=== PATIENT | female | born 1985 | race Caucasian/White ===

== ENCOUNTER 2018-08-08 06:11 | Inpatient (IN) ==
[2018-08-08] MEDS ORDERED: *HR* Nalbuphine 10 MG/ML AMPUL IVP PRN (06:13)
[2018-08-08] MEDS ORDERED: Metoclopramide 10 MG/2 ML VIAL IVP PRN (06:13)
[2018-08-08] MEDS ORDERED: Famotidine 20 MG/2 ML VIAL IVP PRN (06:13)
[2018-08-08] MEDS ORDERED: miSOPROStol 25 MCG TABLET VG PRN (06:13)
[2018-08-08] MEDS ORDERED: Lidocaine 1% 20 ML MDV INFILT PRN (06:13)
[2018-08-08] MEDS ORDERED: Ondansetron 4 MG/2 ML VIAL IVP PRN (06:13)
[2018-08-08] MEDS ORDERED: Naloxone 0.4 MG/ML INJ IVP PRN (06:13)
[2018-08-08] MEDS ORDERED: Ringers Solution, Lactated 1,000 ML IVC SCH (06:15)
[2018-08-08 06:41] LABS: Basophils % 0.3 %; Eosinophils # 0.3 K/mcL (0.0-0.6); Eosinophils % 2.1 %; Hematocrit 35.6 % (35.3-44.9); Hemoglobin 12.2 g/dL (11.5-15.4); Immature Granulocytes % 0.5 % (0-4); Lymphocytes # 3.5 K/mcL (0.6-4.6); Lymphocytes % 29.4 %; Mean Corpuscular HGB Conc 34.3 g/dL (31.6-35.5); Mean Corpuscular Hemoglobin 30.7 pg (28.0-33.3); Mean Corpuscular Volume 89.4 fL (83.0-100.0); Mean Platelet Volume 11.6 fL (9.4-12.4); Monocytes # 0.7 K/mcL (0.0-1.3); Monocytes % 5.6 %; Neutrophils # 7.4 K/mcL (1.6-8.9); Platelet Count 283 K/mcL (140-400); Red Blood Count 3.98 M/mcL (3.82-4.97); Red Cell Distribution Width 14.2 % (11.5-14.5); Segmented Neutrophils % 62.1 %; White Blood Count 11.9 K/mcL (4.3-11.1)
[2018-08-08 06:49] LABS: Amphetamine Screen,Urine Negative ng/mL (Cutoff=1000); Barbiturate Screen,Urine Negative ng/mL (Cutoff=200)
[2018-08-08 06:50] LABS: Benzodiazepines Screen,Urine Negative ng/mL (Cutoff=300); Cannabinoid Screen,Urine Negative ng/mL (Cutoff = 50); Cocaine Screen,Urine Negative ng/mL (Cutoff= 300); Opiate Screen,Urine Negative ng/mL (Cutoff=300); Phencyclidine Screen,Urine Negative ng/mL (Cutoff=25)
--- NOTE | 2018-08-08 07:41 | Anesthesia Evaluation PreOp ---
Date of Encounter: 08/08/18 Time of Encounter: 07:32 - Past History Planned Operation: term induction Cardiac History: Denies any Significant Hx Pulmonary History: Denies Any Significant HX BISCUIT PACKER History: Denies Any Significant HX Other Medical History: Denies Any Significant HX Anesthesia History: No Prior Anesthetic Complications, Past Anesthesia (3 previous epidurals without comp., no other reported anesthesia comp) Alcohol Use: none Drug use: none Medications and Allergies Vit/Iron Fumarate/FA [ Tablet] 1 tab PO DAILY 05/31/15 [History] Allergy/AdvReac Type Severity Reaction Status Date / Time No Known Allergies Allergy Verified 08/08/18 06:25 Anesthesia Results - Labs 08/08/18 06:23 Anesthesia Exam - HEENT Pupil (Motor): Pupils equal Mallampati: II Teeth: Normal Oral Opening: Greater than 3 - BISCUIT PACKER LOC: Oriented BISCUIT PACKER Motor: Normal RUE, Normal LUE, Normal RLE, Normal LLE, Normal Face BISCUIT PACKER Sensory: Normal: RUE, LUE, RLE, LLE, Face - Cardiac Rhythm: Regular Murmur: None - Pulmonary Breath Sounds: bilateral Clear Respiratory Effort: Symmetrical Anesthesia Assess/Plan ASA Score: 2 Level of consciousness: Cooperative, Oriented Anesthetic Plan: General, Spinal, Epidural Monitoring Plan: Standard Monitors Recovery Plan: PACU
[2018-08-08] MEDS ORDERED: Epidural Premix (fent/bupiv) 110 ML EP SCH (07:45)
--- NOTE | 2018-08-08 07:53 | OB/GYN History & Physical ---
Date of Encounter: 08/08/18 Time of Encounter: 07:50 Assessment and Plan (1) 39 weeks gestation of Current visit: No Status: Acute 33yo female at 39 weeks gestation presents for induction of labor. Meza cath placed into cervix and filled with 40 cc sterile water. Cytotec given, expect . History of Present Illness Chief complaint: Here for induction HPI: Ms. Reina is a 33 year old female at 39 weeks gestation presents for induction. has been uncomplicated. She reports + GFM, no vb or lof. On arrival she reports irregular uc's. Past Med Surg Social Fam HX - Past Medical History Source: patient, old records reviewed Medical history: no medical history Psychiatric history: no psych history - Past Surgical History Surgical History: other Additional surgical history: T&A age 8 - Social History Smoking Status: Never smoker Smokeless Tobacco Status: No Alcohol use: none Drug use: none - Family History Mother Living Status: Still Living Hx Family Cardiac Disorders: No Hx Family Respiratory Disorders: No Hx Family Cancer: Yes (breast ca) Hx Family GI Disorders: No Hx Family Endocrine Disorder: No Hx Family Neuromuscular Disorders: No Hx Family Neurologic Disorders: No Hx Family HEENT Disorders: No Hx Family Autoimmune Disorders: No Obstetrical History - Pregnancies : 6 Para: 3 Medications and Allergies Vit/Iron Fumarate/FA [ Tablet] 1 tab PO DAILY 05/31/15 [History] Allergy/AdvReac Type Severity Reaction Status Date / Time No Known Allergies Allergy Verified 08/08/18 06:25 Exam - Constitutional Constitutional: well developed - HEENT HEENT: EOMI, PERRL - Neck Neck exam: full ROM - Lungs Respiratory exam: CTAB - Cardiovascular Cardiovascular exam: RRR - Abdomen Abdomen: Present: gravid, non tender - Extremities Extremities exam: full ROM Deep Tendon Reflex Grade: 2+ Normal - Cervix Dilation: 2 Effacement: 70 Station: -2 Results Result Diagrams: 08/08/18 06:23 Abnormal lab results WBC 11.9 K/mcL (4.3-11.1) H 08/08/18 06:23 All other labs normal. - VTE Reasons for not Prescribing Prophylaxis: Treatment not Indicated - Low risk for VTE
[2018-08-08] MEDS ORDERED: Oxytocin 20 units/ LR 1000 mL 20 UNIT/1,000 ML BAG IVC SCH ×2 (11:15→23:04)
--- NOTE | 2018-08-08 13:16 | Anesthesia Procedures ---
Date of Encounter: 08/08/18 Time of Encounter: 12:48 Procedures: Anesthesia - Epidural/Spinal Patient ID/Chart reviewed: Yes Patient examined: Yes OB Eval: Gestational age: term OB Eval: : 6 OB Eval: Hx Para: 3 OB Eval: Contractions: Non-stressed pattern Consent Obtained: Yes Supplemental Oxygen: None/Room Air Site Prep: Aseptic Technique, Sterile prep and drape, 0.5% Chlorhexidine/Alcohol Patient position: upright Local Anesthetic: Lidocaine 1% Amount of Local Anesthetic used: 2 Touhy Needle Gauge: 18 Touhy Needle Depth (cm): 6 Catheter Depth at Skin (cm): 11 Test Dose (1.5% Lido + Epi): Volume given (mls): 4 Test Dose Result: Negative Loading Dose: Other: 10ML FROM SOLUTION Loading Dose Administered: Thru Catheter Infusion Med: 0.125% Bupivacaine w/ 2 mcg/ml Fentanyl Infusion Rate (mls/hr): [address]: Tegaderm, Tape Interspace Used: L3-L4 Loss of Resistance (GAVIN): Yes (saline) Blood: No CSF: Yes (with 27g purposeful no INJ) Paresthesia: No Procedure: vss though out procedure, FHR stable per RN's
[2018-08-08] MEDS ORDERED: Lidocaine/EPI 1:200k 2% PF 20 ML VIAL ONE (15:54)
--- NOTE | 2018-08-08 16:02 | Event Note ---
<Bina Quinn E - Last Filed: 08/08/18 15:58> Date of Encounter: 08/08/18 Time of Encounter: 15:58 Called to patient's room by RN to evaluate for possible hand in front of head. Upon vaginal exam, hand present anteriorly; attempted to reduce without success. Patient placed in trendelenburg, pitocin stopped, and abdomen prepped for possible C/S. Dr Laura notified and OR prepared for possible C/S. Counter pressure placed on head until Dr Laura arrived to room. Dr Laura arrives to room and resumes care. <Sam Laura R - Last Filed: 08/08/18 16:06> Date of Encounter: 08/08/18 Upon arriving exam performed and hand presentation found. Pt's cevix was 4/80/- 2.. Pt had excellent epidrual and I was able to easily reduce hand back up into the uterus. I had pt "push" and hand remained in appropriate location. Exam a few minutes later was stable. D/w pt options and will cont with labor induction. RNST.
--- NOTE | 2018-08-08 22:10 | OB/GYN Procedure Note ---
Delivery - Delivery Date: 08/08/18 Provider: Sam Laura Delivery induction: obrien, misoprostol Delivery monitor: external FHT, internal uterine Anesthesia: epidural Quantitated Blood Loss: 50 - Infant (s) Infant A Delivery Date: 08/08/18 Infant Delivery Time: 21:47 Presentation: vertex Position: AYDE Route of delivery: Gender: Female Viability: Viable Pounds: 6 Ounces: 12 at 1 minute: 8 at 5 mins: 10 Shoulder Dystocia: not encountered Specimens collected: cord blood Placenta: spontaneous Cord: nuchal cord, 3 umbilical vessels, nuchal reduced - Repair Episiotomy: none Laceration Description: None - Complications Delivery complications: none - Disposition Mom disposition: stable in LDR disposition: stable in LDR - Comments Comments: Pt is s/p of liveborn female 6lb 12 oz with apgars 8 at 1 min and 10 at 5 min. There was a loose nuchal cord that was easily reduced prior to delivery of . We had spontaneous delivery of normal placenta with 3 vc.ebl 50 cc
[2018-08-08] MEDS ORDERED: Oxytocin 20 units/ LR 1000 mL 20 UNIT/1,000 ML BAG IVC ONE (23:04)
[2018-08-08] MEDS ORDERED: Rho Immune Globulin 1,500 UNIT SYRINGE IM PRN (23:04)
[2018-08-08] MEDS ORDERED: Acetaminophen 325 MG TABLET PO PRN (23:04)
[2018-08-08] MEDS ORDERED: Measles/Mumps/Rubella Vacc 0.5 ML VIAL SQ PRN (23:04)
[2018-08-09] MEDS: Ibuprofen 600 MG TABLET PO PRN ×4 (00:33→21:35)
[2018-08-09 04:28] LABS: Basophils % 0.2 %; Eosinophils # 0.1 K/mcL (0.0-0.6); Eosinophils % 0.7 %; Hematocrit 35.9 % (35.3-44.9); Hemoglobin 12.2 g/dL (11.5-15.4); Immature Granulocytes % 0.4 % (0-4); Lymphocytes # 2.7 K/mcL (0.6-4.6); Lymphocytes % 13.9 %; Mean Corpuscular Hemoglobin 31.4 pg (28.0-33.3); Mean Corpuscular Volume 92.3 fL (83.0-100.0); Mean Platelet Volume 11.6 fL (9.4-12.4); Monocytes % 5.2 %; Platelet Count 251 K/mcL (140-400); Red Blood Count 3.89 M/mcL (3.82-4.97); Red Cell Distribution Width 14.5 % (11.5-14.5); Segmented Neutrophils % 79.6 %
[2018-08-09 04:29] LABS: Neutrophils # 15.4 K/mcL (1.6-8.9); White Blood Count 19.4 K/mcL (4.3-11.1)
[2018-08-09] MEDS ORDERED: Prenatal Vit/FA 1 EACH TABLET PO SCH (09:00)
--- NOTE | 2018-08-09 12:55 | OB/GYN Progress Note ---
Date of Encounter: 08/09/18 Time of Encounter: 12:53 - Assessment and Plan (1) (normal spontaneous vaginal delivery) Current Visit: Yes Status: Acute Stable PPD #1 Continue current management Anticipate discharge tomorrow Subjective - Subjective Patient reports: appetite normal, voiding normally, pain well controlled, ambulating normally : doing well Objective - Latest Vital Signs Latest vital signs: Vital Signs Temp Pulse Resp BP Pulse Ox 08/09/18 12:20 97.5 F L 08/09/18 08:33 97.9 F 93 16 136/90 96 08/09/18 02:15 99.0 F 100 14 113/79 99 08/09/18 01:15 98.1 F 104 14 132/82 98 08/09/18 00:15 98.7 F 91 16 139/85 95 Intake and Output 08/08/18 08/09/18 08/09/18 23:59 07:59 15:59 Intake Total 1000 / 1000 Output Total 2100 / 3000 900 / 3000 Balance -2100 / -2000 100 / -2000 Intake: Oral 1000 / 1000 Output: Urine 2100 / 3000 900 / 3000 Other: Meal Breakfast Percent of Meal Consumed 100% Weight 101 kg Patient Weight 08/09/18 23:59 Weight 101 kg - Exam Lungs: bilateral: normal Chest: Normal S1, Normal S2 Abdomen: Present: soft Uterus: Present: firm Uterus Position: 1 Finger Below Umbilicus - Labs Labs: Laboratory Results - last 24 hr 08/09/18 03:49 WBC 19.4 H D RBC 3.89 Hgb 12.2 Hct 35.9 MCV 92.3 MCH 31.4 MCHC 34.0 RDW 14.5 Plt Count 251 MPV 11.6 Immature Gran % 0.4 Seg Neutrophils % 79.6 Lymphocytes % 13.9 Monocytes % 5.2 Eosinophils % 0.7 Basophils % 0.2 Neutrophils # 15.4 H Lymphocytes # 2.7 Monocytes # 1.0 Eosinophils # 0.1 Basophils # 0.0
[2018-08-09 20:51] VITALS: BP 128/84
--- NOTE | 2018-08-09 21:10 | Discharge Summary ---
Date of Encounter: 08/09/18 Time of Encounter: 21:07 - Discharge Diagnosis (1) (normal spontaneous vaginal delivery) Priority: Primary Status: Acute Comments: Stable, meeting all PP milestones, pain well managed, bleeding minimal, breast feeding, desires discharge. - Discharge Medications Prescriptions: New Acetaminophen [Tylenol] 650 mg PO Q6HR PRN tablet PRN Reason: Mild Pain Ibuprofen [Motrin] 600 mg PO Q6HR PRN tablet PRN Reason: Cramping Docusate [Colace] 100 mg PO BID capsule Continued Vit/Iron Fumarate/FA [ Tablet] 1 tab PO DAILY Home Medications: Vit/Iron Fumarate/FA [ Tablet] 1 tab PO DAILY 05/31/15 [History] Acetaminophen [Tylenol] 650 mg PO Q6HR PRN tablet 08/09/18 [Rx] Docusate [Colace] 100 mg PO BID capsule 08/09/18 [Rx] Ibuprofen [Motrin] 600 mg PO Q6HR PRN tablet 08/09/18 [Rx] Allergies/Adverse Reactions: Allergy/AdvReac Type Severity Reaction Status Date / Time No Known Allergies Allergy Verified 08/08/18 06:25 Data Procedures and tests throughout hospitalization: Laboratory Tests 08/08/18 08/08/18 08/09/18 06:23 06:23 03:49 WBC 11.9 H 19.4 H D RBC 3.98 3.89 Hgb 12.2 12.2 Hct 35.6 35.9 MCV 89.4 92.3 MCH 30.7 31.4 MCHC 34.3 34.0 RDW 14.2 14.5 Plt Count 283 251 MPV 11.6 11.6 Immature Gran % 0.5 0.4 Seg Neutrophils % 62.1 79.6 Lymphocytes % 29.4 13.9 Monocytes % 5.6 5.2 Eosinophils % 2.1 0.7 Basophils % 0.3 0.2 Neutrophils # 7.4 15.4 H Lymphocytes # 3.5 2.7 Monocytes # 0.7 1.0 Eosinophils # 0.3 0.1 Basophils # 0.0 0.0 Urine Opiates Screen Negative Ur Barbiturates Screen Negative Ur Phencyclidine Scrn Negative Ur Amphetamines Screen Negative U Benzodiazepines Scrn Negative Urine Cocaine Screen Negative U Marijuana (THC) Screen Negative Ur Drug Screen Interp See Below Labs on day of discharge: Labs from last 24 hours 08/09/18 03:49 WBC 19.4 H D RBC 3.89 Hgb 12.2 Hct 35.9 MCV 92.3 MCH 31.4 MCHC 34.0 RDW 14.5 Plt Count 251 MPV 11.6 Immature Gran % 0.4 Seg Neutrophils % 79.6 Lymphocytes % 13.9 Monocytes % 5.2 Eosinophils % 0.7 Basophils % 0.2 Neutrophils # 15.4 H Lymphocytes # 2.7 Monocytes # 1.0 Eosinophils # 0.1 Basophils # 0.0 Date of admission: 08/08/18 06:11 Primary care physician: PCP NONE Consults: 08/08/18 23:04 Consult to Cover Cutter [CONS] Routine Comment: Vaginal delivery, consult needed Discharging clinician: Marcia Oh Anticipated date of discharge: 08/09/18 - Patient Status Disposition: Home, Self-Care Condition: Good Functional capacity at discharge: independent ambulation Overall status at discharge: patient is back to baseline - Discharge Instructions Follow Up With: NONE,PCP [Primary Care Provider] - Sam Laura MD [Partnered Physician] - - Diet and Activity Activity: resume usual activities as tolerated Diet: regular diet Hospital Course Reason for admission: induction of labor, IUP at term Delivery: Episiotomy: none Laceration: none Other procedures: none complications: none Discharge diagnosis: IUP at term delivered baby: female Hospital course: Delivery - Delivery Date: 08/08/18 Provider: Sam Laura Delivery induction: obrien, misoprostol Delivery monitor: external FHT, internal uterine Anesthesia: epidural Quantitated Blood Loss: 50 - (s) Infant A Delivery Date: 08/08/18 Delivery Time: 21:47 Presentation: vertex Position: AYDE Route of delivery: Gender: Female Viability: Viable Pounds: 6 Ounces: 12 at 1 minute: 8 at 5 mins: 10 Shoulder Dystocia: not encountered Specimens collected: cord blood Placenta: spontaneous Cord: nuchal cord, 3 umbilical vessels, nuchal reduced - Repair Episiotomy: none Laceration Description: None - Complications Delivery complications: none - Disposition Mom disposition: stable in PP and appropriate for discharge Time Attestation: Total time spent providing and/or coordinating discharge services: Time Spent: Less than 30 minutes Exam - Constitutional Vitals: Temp Pulse Resp BP Pulse Ox 98.0 F 96 14 128/84 99 08/09/18 20:35 08/09/18 20:35 08/09/18 20:35 08/09/18 20:35 08/09/18 20:35 General appearance IM: A&O X 3 - Respiratory Respiratory exam: Present: CTAB - Cardiovascular Cardiovascular exam IM: Present: RRR - GI/Abdominal GI/Abdominal exam IM: soft - Uterine Tone: Firm Uterus Position: At Umbilicus - Extremities Exam Extremities exam IM: Present: normal capillary refill, normal inspection - Neurological Exam Neurological exam: normal gait, oriented X3 - Psychiatric Additional comments: reports good mood
== END 2018-08-09 23:40 | disposition home or self-care (01) | DRG 807 ==
LOC: 1NENULAB 06:11 → 1NENUOBS 08-09 00:20
PROVIDERS: ADMIT Obstetrics & Gynecology; ATTEND Obstetrics & Gynecology